=== PATIENT | male | born 1980 | race Caucasian/White ===

== ENCOUNTER 2018-04-05 02:45 | Emergency (ER) | payer MEDICARE, OTHER ==
[2018-04-05 02:57] VITALS: TEMP 97.5
[2018-04-05] MEDS ORDERED: ALBUTEROL/IPRATROPIUM 1 VIAL SOL ONE ×2 (03:34→03:53)
[2018-04-05] MEDS ORDERED: ALBUTEROL/IPRATROPIUM 1 VIAL SOL INH ONE ×2 (03:36→03:53)
[2018-04-05] MEDS ORDERED: PREDNISONE 20 MG TAB PO ONE (03:37)
[2018-04-05] MEDS ORDERED: PREDNISONE 20 MG TAB ONE (03:42)
[2018-04-05 04:00] VITALS: RESP 22
[2018-04-05 04:36] VITALS: BP 165/107; PULSE 121; O2SAT 96
== END 2018-04-05 04:25 | disposition home or self-care (01) | DRG 204 ==
LOC: ED 02:45
DX: R06.02 Shortness of breath (principal); R00.0 Tachycardia, unspecified
CPT/HCPCS: 93005; 99283; 99284; A9270-GY

== ENCOUNTER 2018-05-06 17:05 | Emergency (ER) | payer MEDICARE, OTHER ==
[2018-05-06] MEDS: SODIUM CHLORIDE 0.9% 1000ML 1,000 ML IV ONE ×2 (17:07→18:50)
[2018-05-06] MEDS: ONDANSETRON HCL 4 MG/2 ML SOL IV ONE (17:08)
[2018-05-06] MEDS ORDERED: ONDANSETRON HCL 4 MG/2 ML SOL ONE (17:10)
[2018-05-06 17:21] LABS: BASOPHILS % (AUTO) 2 % (0-3); EOSINOPHILS % (AUTO) 2 % (0-9); HEMATOCRIT 45 % (39-53); HEMOGLOBIN 15.4 gm/dl (13.5-17.7); LYMPHOCYTES % (AUTO) 43.8 % (10-50); MEAN CORPUSCULAR HGB CONC 34.5 gm/dl (32.0-36.0); MEAN CORPUSCULAR VOLUME 84 fL (80-100); MONOCYTES % (AUTO) 8.7 % (0-12); NEUTROPHILS % (AUTO) 43.7 % (37-80)
[2018-05-06 17:27] VITALS: TEMP 97
[2018-05-06 17:35] LABS: ALBUMIN 3.6 gm/dl (3.4-5.0); BILIRUBIN,TOTAL 0.3 mg/dl (0.2-1.0); CALCIUM 8.1 mg/dl (8.5-10.1); CARBON DIOXIDE 21.2 mEq/L (21-32); CREATININE 0.92 mg/dl (0.80-1.30); MAGNESIUM 1.6 mg/dl (1.8-2.4); POTASSIUM 3.3 mMol/L (3.5-5.1); TOTAL PROTEIN 6.9 gm/dl (6.4-8.2)
[2018-05-06 17:38] LABS: ALCOHOL 0.182 gm/dl (0.000-0.08)
[2018-05-06] MEDS ORDERED: MAGNESIUM SULFATE 5 GM/10 ML SOL ONE (18:39)
[2018-05-06] MEDS: MAGNESIUM SULFATE 5 GM/10 ML SOL IV ONE (18:45)
[2018-05-06 19:35] LABS: APPEARANCE,URINE Clear; BILIRUBIN,URINE NEGATIVE (NEGATIVE); COLOR,URINE Yellow; GLUCOSE, URINE (UA) NEGATIVE (NEGATIVE); KETONES,URINE NEGATIVE (NEGATIVE); LEUKOCYTE ESTERASE ,URINE NEGATIVE (NEGATIVE); NITRATE,URINE NEGATIVE (NEGATIVE); OCCULT BLOOD,URINE TRACE LYSED (NEG-TRACE); PH,URINE 5.5; UROBILINOGEN,URINE 0.2 (0.2-1.0 EU)
[2018-05-06 19:47] LABS: AMPHETAMINES NEGATIVE (NEGATIVE); BACTERIA NEGATIVE (< 1+); BARBITUATES NEGATIVE (NEGATIVE); BENZODIAZEPINES NEGATIVE (NEGATIVE); CANNABINOL(THC) NEGATIVE (NEGATIVE); COCAINE(COC) NEGATIVE (NEGATIVE); CRYSTALS NEGATIVE (0-3 AVE/HPF); EPITHELIAL CELLS NEGATIVE (SQUAMOUS); METHADONE NEGATIVE (NEGATIVE); METHAMPHETAMINES NEGATIVE (NEGATIVE); OPIATES(OP13) NEGATIVE (NEGATIVE); OXYCODONE(OXY) NEGATIVE (NEGATIVE); PROPOXYPHENE(PPX) NEGATIVE (NEGATIVE); RBC,URINE NEG (0-3AV/HPF); TRICYCLIC ANTIDEPRESSANTS NEGATIVE (NEGATIVE); WBC,URINE NEG (0-5AV/HPF)
[2018-05-06 20:16] VITALS: BP 124/85; PULSE 99; RESP 18; O2SAT 95
== END 2018-05-06 20:07 | disposition home or self-care (01) | DRG 897 ==
LOC: ED 17:05
DX: F10.120 Alcohol abuse with intoxication, uncomplicated (principal); Y90.6 Blood alcohol level of 120-199 mg/100 ml; R11.2 Nausea with vomiting, unspecified
CPT/HCPCS: 36415; 80053; 80305; 80307; 81001; 83735; 85025; 93005; 96365; 96366; 96374; 99284; 99285; J2405; J3475